=== PATIENT | female | born 1955 | race Caucasian/White ===

== ENCOUNTER 2018-12-28 22:50 | Emergency (ER) | payer MEDICAID ==
[2018-12-28] MEDS ORDERED: HYDROmorphone 0.5 MG/0.5 ML Syringe IVPUSH ONE (23:27)
[2018-12-28] MEDS ORDERED: Sodium Chloride 0.9% 10 ML Syringe FLUSH PRN (23:27)
[2018-12-29] MEDS ORDERED: HYDROmorphone 0.5 MG/0.5 ML Syringe IVPUSH ONE ×2 (00:31→01:38)
[2018-12-29] MEDS ORDERED: Ondansetron 4 MG/2 ML SDV IVPUSH ONE (01:45)
[2018-12-29] MEDS ORDERED: Acetaminophen/HYDROcodone 325-5 MG Tab PO ONE (02:04)
--- NOTE | 2018-12-29 02:04 | EDM.PDOC ---
ED HPI GENERAL MEDICAL PROBLEM - General Chief Complaint: Upper Extremity Injury/Pain Stated Complaint: POSS BROKEN ARM Time Seen by Provider: 12/28/18 23:23 Source of Information: Reports: Patient, RN Notes Reviewed - History of Present Illness INITIAL COMMENTS - FREE TEXT/NARRATIVE: 63-year-old female tripped over an object falling forward and landing hard on her right arm. Has severe right upper arm and shoulder discomfort. She does not believe she hit her head. There was no LOC. No neck or back pain. No chest pain or difficulty breathing. No abdominal pain nausea or vomiting. She continues to have severe pain right shoulder worse with any motion of her right arm. Left Upper Arm Pain Score (Numeric/FACES): 10 - Related Data Allergies Allergy/AdvReac Type Severity Reaction Status Date / Time No Known Allergies Allergy Verified 12/28/18 23:08 Home Meds: Home Meds Acetaminophen/HYDROcodone [[place] 325-5 MG] 1 tab PO Q4H PRN #30 tablet 12/29/18 [Rx] Past Medical History - Past Health History Medical/Surgical History: Denies Medical/Surgical History Social & Family History - Tobacco Use Smoking Status *Q: Current Every Day Smoker Years of Tobacco use: 40 Packs/Tins Daily: 2 Review of Systems - Review of Systems Review Of Systems: See Below Constitutional: Reports: No Symptoms Eyes: Reports: No Symptoms Ears: Reports: No Symptoms Nose: Reports: No Symptoms Mouth/Throat: Reports: No Symptoms Respiratory: Denies: Shortness of Breath Cardiovascular: Denies: Chest Pain GI/Abdominal: Denies: Abdominal Pain, Nausea, Vomiting Musculoskeletal: Reports: Shoulder Pain Skin: Reports: No Symptoms Neurological: Denies: Numbness, Tingling, Weakness ED EXAM, GENERAL - Physical Exam Exam: See Below General Appearance: Alert, Moderate Distress Nose: Normal Inspection Throat/Mouth: Normal Inspection Head: Atraumatic Neck: Supple Respiratory/Chest: No Respiratory Distress, Lungs Clear Cardiovascular: Regular Rate, Rhythm Extremities: Limited Range of Motion, Other (Very tender right shoulder anteriorly laterally and posteriorly. No swelling or bruising visible, no visible deformity) Neurological: Oriented, No Motor/Sensory Deficits Skin Exam: Warm, Dry, Normal Color Course - Vital Signs Last Recorded V/S: Last Vital Signs Temp 97.4 F 12/28/18 23:04 Pulse 89 12/28/18 23:04 Resp 24 H 12/28/18 23:04 BP 147/89 H 12/28/18 23:04 Pulse Ox 97 12/28/18 23:04 - Orders/Labs/Meds Orders: Active Orders 24 hr Category Date Time Status Peripheral IV Care [RC] . DIRECTED Care 12/28/18 23:27 Active Shoulder Comp Rt [CR] Stat Exams 12/28/18 23:28 Ordered DME for Discharge [COMM] Stat Oth 12/29/18 01:23 Ordered Peripheral IV Insertion Adult [OM.PC] Stat Oth 12/28/18 23:27 Ordered Meds: Medications Discontinued Medications Generic Name Dose Route Start Last Admin Trade Name Freq PRN Reason Stop Dose Admin Hydrocodone Bitart/Acetaminophen 1 tab 12/29/18 02:04 12/29/18 02:19 [place] 325-5 Mg PO 12/29/18 02:05 1 tab ONETIME ONE Administration Hydromorphone HCl 0.5 mg 12/28/18 23:27 12/28/18 23:36 Dilaudid IVPUSH 12/28/18 23:28 0.5 mg ONETIME ONE Administration Hydromorphone HCl 0.5 mg 12/29/18 00:31 12/29/18 00:35 Dilaudid IVPUSH 12/29/18 00:32 0.5 mg ONETIME ONE Administration Hydromorphone HCl 0.5 mg 12/29/18 01:38 12/29/18 01:52 Dilaudid IVPUSH 12/29/18 01:39 0.5 mg ONETIME ONE Administration Ondansetron HCl 4 mg 12/29/18 01:45 12/29/18 01:51 Zofran IVPUSH 12/29/18 01:46 4 mg ONETIME ONE Administration Sodium Chloride 10 ml 12/28/18 23:27 12/28/18 23:37 Saline Flush FLUSH 10 ml ASDIRECTED PRN Administration Keep Vein Open - Re-Assessments/Exams Free Text/Narrative Re-Assessment/Exam: 12/29/18 04:22 X-ray shows oblique fracture right proximal humerus. We did give her multiple doses of Dilaudid 0.5 mg IV for pain. Long-arm splint has been placed. Discharge instructions as documented. Departure - Departure Time of Disposition: 02:00 Disposition: Home, Self-Care 01 Condition: Fair Clinical Impression: Fracture of humerus Qualifiers: Encounter type: initial encounter Humerus Location: proximal Fracture type: closed Fracture morphology: unspecified fracture morphology - Discharge Information Prescriptions: Acetaminophen/HYDROcodone [[place] 325-5 MG] 1 tab PO Q4H PRN #30 tablet PRN Reason: Pain Instructions: Humerus Fracture Treated With Immobilization, [id number] Referrals: PCP,None [Primary Care Provider] - Forms: ED Department Discharge Additional Instructions: Fiberglass long-arm splint. Sling and Swathe R arm for comfort and protection. Hydrocodone 1 tab every 4-6 hours as needed for severe pain. Once the pain is less severe try get by with Tylenol 2 tabs every 6-8 hours as needed. Ice packs to upper arm as needed for discomfort and swelling. Follow-up with one of our Orthopedists in about 2-3 days, next available appointment. The phone number for appointment for Dr. Arm[facility] is [phone]. Otherwise you can try for Dr Manrique, Orthopedist at [facility], [phone]. - My Orders Last 24 Hours: My Active Orders 12/28/18 23:27 Peripheral IV Care [RC] . DIRECTED Peripheral IV Insertion Adult [OM.PC] Stat 12/28/18 23:28 Shoulder Comp Rt [CR] Stat 12/29/18 01:23 DME for Discharge [COMM] Stat - Assessment/Plan Last 24 Hours: My Active Orders 12/28/18 23:27 Peripheral IV Care [RC] . DIRECTED Peripheral IV Insertion Adult [OM.PC] Stat 12/28/18 23:28 Shoulder Comp Rt [CR] Stat 12/29/18 01:23 DME for Discharge [COMM] Stat
--- NOTE | 2018-12-29 08:13 | CR ---
Right shoulder: Two views of the right shoulder were obtained. Proximal humeral fracture is seen involving the proximal diaphysis. Displacement is seen up to 1.1 cm. Joint space narrowing is noted within the acromioclavicular joint with mild inferior spurring. No additional abnormality is seen. Impression: 1. Mildly displaced proximal right humeral fracture involving the diaphysis. 2. Other finding as noted above which is felt to be incidental. Diagnostic code #3
== END 2018-12-29 02:15 | disposition home or self-care (01) ==
LOC: JD.ED 22:50
DX: S42.201A Unspecified fracture of upper end of right humerus, initial encounter for closed fracture (principal); F17.210 Nicotine dependence, cigarettes, uncomplicated; W20.8XXA Other cause of strike by thrown, projected or falling object, initial encounter
CPT/HCPCS: 29105; 73030; 96374; 96375; 96376; 99283; A9270; J1170; J2405; 99284